=== PATIENT | male | born 1990 | race Caucasian/White ===

== ENCOUNTER 2017-08-28 07:22 | Emergency (ER) | payer SELFPAY ==
[~2017-08-28] VITALS: Ht 185.4 cm; Wt 63.5 kg
[~2017-08-28 07:22] MED LIST: CLIN300C8 PO; HYDR-79 PO; ONDA8TAB12 PO; RANI150T6 PO
[2017-08-28 07:46] VITALS: BP 103/62
--- NOTE | 2017-08-28 07:53 | PHYS DOC ---
Past History Past Medical History: Gallstones, Other Past Surgical History: No Surgical History, Other Smoking: Cigarettes Alcohol Use: Occasionally Drug Use: Marijuana, Methamphetamine Adult General Chief Complaint Chief Complaint: NAUSEA/VOMITING/DIARRHEA HPI HPI 27-year-old male patient states he had 2 energy drink while he was worked last night and vomited 4-5 times and his boss sent him home.. Patient states he had one episode of vomiting at 4:30 this morning without diarrhea and abdominal pain. Patient states he was able to tolerate oral intake. 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 Review of Systems Review of Systems Constitutional: Denies fever or chills [] Eyes: Denies change in visual acuity, redness, or eye pain [] HENT: Denies nasal congestion or sore throat [] Respiratory: Denies cough or shortness of breath [] Cardiovascular: No additional information not addressed in HPI [] GI: Reports nausea, vomiting, denies bloody stools or diarrhea [] : Denies dysuria or hematuria [] Musculoskeletal: Denies back pain or joint pain [] Integument: Denies rash or skin lesions [] Neurologic: Denies headache, focal weakness or sensory changes [] Endocrine: Denies polyuria or polydipsia [] All other systems were reviewed and found to be within normal limits, except as documented in this note. Allergies Allergies Allergies Coded Allergies Type Severity Reaction Last Updated Verified Penicillins Allergy Intermediate 03/18/16 Yes ragweed pollen Allergy Intermediate 02/23/16 No Physical Exam Physical Exam Constitutional: Well developed, well nourished, no acute distress, non-toxic appearance. [] HENT: Normocephalic, atraumatic, oropharynx moist Eyes: PERRLA, EOMI, conjunctiva normal, no discharge. [] Neck: Normal range of motion, no tenderness, supple, no stridor. [] Cardiovascular:Heart rate regular rhythm, no murmur [] Lungs & Thorax: Bilateral breath sounds clear to auscultation [] Abdomen: Bowel sounds normal, soft, no tenderness, no masses, no pulsatile masses. [] Skin: Warm, dry, no erythema, no rash. [] Back: No tenderness, no CVA tenderness. [] Extremities: No tenderness, no cyanosis, no clubbing, ROM intact, no edema. [] Neurologic: Alert and oriented X 3, normal motor function, normal sensory function, no focal deficits noted. [] Psychologic: Affect normal, judgement normal, mood normal. [] EKG EKG [] Radiology/Procedures Radiology/Procedures [] Course & Med Decision Making Course & Med Decision Making discharge: I've spoken with the patient and/or caregivers. I've explained the patient's condition, diagnosis and treatment plan based on information available to me at this time. I've answered the patient's and/or caregivers questions and addressed any concerns. The patient and/or caregivers have a good understanding the patient's diagnosis, condition and treatment plan as can be expected at this point. Vital signs have been stabilized. The patient's condition is stable for discharge from the emergency department. The patient will pursue further outpatient evaluation with her primary care provider or other designated consulting physician as outlined in the discharge instructions. Patient and/or caregivers are agreeable to this plan of care and follow-up instructions have been explained in detail. The patient and/or caregivers have received these instructions in written format and expressed understanding of these discharge instructions. The patient and her caregivers are aware that if any significant change in condition or worsening of symptoms should prompt him to immediately return to this of the closest emergency department. If an emergent department is not readily available I would encourage him to call 911. Randall Disclaimer Dragon Disclaimer This electronic medical record was generated, in whole or in part, using a voice recognition dictation system. Departure Departure: Impression: Primary Impression: Encounter to obtain excuse from work Disposition: HOME, SELF-CARE (At 0752) Condition: STABLE Referrals: PCP,NO (PCP) Patient Instructions: Nausea and Vomiting Additional Instructions: Drink plenty of liquids Follow-up with your primary care physician in 3-5 days Return to ER if not getting better JUAN ALBERTO NICE MD Aug 28, 2017 07:53
== END 2017-08-28 08:05 | disposition home or self-care (01) ==
LOC: ER 07:22
DX: Z02.79 Encounter for issue of other medical certificate (principal); R11.10 Vomiting, unspecified; F17.210 Nicotine dependence, cigarettes, uncomplicated; F12.10 Cannabis abuse, uncomplicated; F15.10 Other stimulant abuse, uncomplicated; Z88.0 Allergy status to penicillin; Z91.048 Other nonmedicinal substance allergy status
CPT/HCPCS: 99281

== ENCOUNTER 2017-09-05 17:25 | Emergency (ER) | payer SELFPAY ==
[~2017-09-05] VITALS: Ht 185.4 cm; Wt 65.8 kg
[2017-09-05] MEDS ORDERED: IV NORMAL SALINE 1,000ML 1,000 ML IV SCH (17:36)
--- NOTE | 2017-09-05 17:42 | PHYS DOC ---
Past History Past Medical History: Seizure Additional Past Medical Histor: pseudoseizure Past Surgical History: Other Smoking: Cigarettes Alcohol Use: None Drug Use: None Adult General Chief Complaint Chief Complaint: NAUSEA/VOMITING/DIARRHEA [facility] 27-year-old male patient complaining of 6 episodes of vomiting and one episode of loose stools since this morning with cramping abdominal pain during episodes of vomiting. Patient states that the same problem several days ago that resolved spontaneously and seen in his emergency room. Patient complaining of generalized weakness and dizziness and decrease of urine output. Patient states he has had intermittent episodes of penile discharge and a history of genital herpes but does not want checking for STD. Patient denies fever and chills, chest pain, shortness of breath. Patient had sick contacts at home. Patient denies using alcohol and drugs. Review of Systems Review of Systems Constitutional: Denies fever or chills [] Eyes: Denies change in visual acuity, redness, or eye pain [] HENT: Denies nasal congestion or sore throat [] Respiratory: Denies cough or shortness of breath [] Cardiovascular: No additional information not addressed in HPI [] GI: Reports abdominal pain, denies bloody stools ] History of nausea and vomiting : Denies dysuria or hematuria [] Musculoskeletal: Denies back pain or joint pain [] Integument: Denies rash or skin lesions [] Neurologic: Denies headache, focal weakness or sensory changes [] Endocrine: Denies polyuria or polydipsia [] All other systems were reviewed and found to be within normal limits, except as documented in this note. Family History Family History Noncontributory Current Medications Current Medications See nursing for home meds Allergies Allergies Allergies Coded Allergies Type Severity Reaction Last Updated Verified Penicillins Allergy Intermediate 09/05/17 Yes ragweed pollen Allergy Intermediate 02/23/16 No Physical Exam Physical Exam Constitutional: Well nourished, mild distress, non-toxic appearance, smell of alcohol on breath. [] HENT: Normocephalic, atraumatic, bilateral external ears normal, oropharynx dry , no oral exudates, nose normal. [] Eyes: PERRLA, EOMI, conjunctiva normal, no discharge. [] Neck: Normal range of motion, no tenderness, supple, no stridor. [] Cardiovascular:Heart rate regular rhythm, no murmur [] Lungs & Thorax: Bilateral breath sounds equal at apex with scattered wheezes auscultation [] Abdomen: Bowel sounds normal, soft, no tenderness, no masses, no pulsatile masses. []Patient declines rectal exam at this time. Skin: Warm, dry, no erythema, no rash. [] Back: No tenderness, no CVA tenderness. [] Extremities: No tenderness, no cyanosis, no clubbing, ROM intact, no edema. [] No psoas or heeltap Neurologic: Alert and oriented X 3, normal motor function, normal sensory function, no focal deficits noted. [] Psychologic: Affect normal, judgement normal, mood normal. [] Current Patient Data Vital Signs Vital Signs Date Time Temp Pulse Resp B/P (MAP) Pulse Ox O2 Delivery O2 Flow Rate FiO2 09/05/17 17:33 98.5 72 16 98 Room Air EKG EKG [] Radiology/Procedures Radiology/Procedures [] Course & Med Decision Making Course & Med Decision Making Pertinent Labs are pending. Patient's care transferred to Dr. Miller at 1800. Patient's labs reviewed. Patient currently feels better. Discussed options discussed possible diagnosis or causes of his nausea and vomiting. Patient does have a history of gallbladder disease and gastritis. Also history of seizure disorder-possible pseudoseizures. Discussed with patient and marijuana use which can also cause a vomiting syndrome, especially if used more than 20 times in a month. Patient encouraged follow-up with primary care. A trial of Zantac be given 150 twice a day. Patient also receive a prescription for Zofran 8 up 4 x day. . Patient recommended to get a hot shower sometimes helps marijuana-induced nausea and vomiting. Consider follow-up with GI for EGD and further evaluation. Must follow-up primary care. 1. Impression nausea and vomiting 2. Marijuana use 3 Hx .gallbladder disease 4 History of gastritis 5. Hx. of seizure disorder possible pseudoseizure order-- 6. History of alcohol use Dragon Disclaimer Dragon Disclaimer This electronic medical record was generated, in whole or in part, using a voice recognition dictation system. Departure Departure: Impression: Primary Impression: Nausea and vomiting Additional Impressions: Marijuana abuse Alcohol abuse Tobacco abuse Tobacco abuse counseling History of pseudoseizure Disposition: HOME, SELF-CARE Condition: IMPROVED Referrals: PCP,DELISA (PCP) Scripts Ranitidine Hcl (ZANTAC) 150 Mg Tablet 150 MG PO BID for 30 Days, #60 TAB Prov: ZAY MILLER MD 09/05/17 Ondansetron (ZOFRAN ODT) 8 Mg Tab.rapdis 8 MG PO QIDPRN Y for NAUSEA/VOMITING, #30 Prov: ZAY MILLER MD 09/05/17 Problem Qualifiers JUAN ALBERTO NICE MD Sep 05, 2017 17:42 ZAY MILLER MD Sep 05, 2017 19:08
[2017-09-05] MEDS ORDERED: 0.9 % SODIUM CHLORIDE 10 ML DISP.SYRIN. IV PRN (17:45)
[2017-09-05] MEDS ORDERED: ONDANSETRON PF 4 MG/2 ML VIAL. IV ONE ×2 (17:45→18:30)
[2017-09-05 18:04] LABS: BASO # 0.1 x10^3/uL (0.0-0.2); BASO % 1 % (0-3); EOS # 0.2 x10^3/uL (0.0-0.7); EOS % 2 % (0-3); HEMATOCRIT 44.1 % (39.0-53.0); HEMOGLOBIN 15.2 g/dL (13.0-17.5); LYMPH # 3.4 x10^3/uL (1.0-4.8); LYMPH % 37 % (24-48); MEAN CORPUSCULAR HEMOGLOBIN 31 pg (25-35); MEAN CORPUSCULAR HGB CONC 34 g/dL (31-37); MEAN CORPUSCULAR VOLUME 91 fL (79-100); MONO # 0.6 x10^3/uL (0.0-1.1); MONO % 6 % (0-9); NEUT # 5.1 x10^3uL (1.8-7.7); NEUT % 55 % (31-73); PLATELET COUNT 291 x10^3/uL (140-400); RED BLOOD COUNT 4.87 x10^6/uL (4.30-5.70); RED CELL DISTRIBUTION WIDTH 13.3 % (11.5-14.5); WHITE BLOOD COUNT 9.3 x10^3/uL (4.0-11.0)
[2017-09-05 18:12] LABS: ALBUMIN 4.1 g/dL (3.4-5.0); ALBUMIN/GLOBULIN RATIO 1.4 (1.0-1.7); CALCIUM 8.9 mg/dL (8.5-10.1); CREATININE 0.9 mg/dL (0.7-1.3); GFR 99.8; POTASSIUM 3.7 mmol/L (3.5-5.1); TOTAL BILIRUBIN 0.5 mg/dL (0.2-1.0); TOTAL PROTEIN 7.1 g/dL (6.4-8.2)
[2017-09-05 18:12] LABS: AMPHETAMINE/METHAMPHETAMINE NEG (NEG); BARBITURATES NEG (NEG); BENZODIAZEPINES NEG (NEG); CANNABINOIDS POS (NEG); COCAINE NEG (NEG); METHADONE NEG (NEG); OPIATES NEG (NEG); PHENCYCLIDINE NEG (NEG)
[2017-09-05 18:16] LABS: BACTERIA,URINE 0 /HPF (0-FEW); BILIRUBIN,URINE NEG (NEG); CLARITY,URINE CLEAR; COLOR,URINE YELLOW; GLUCOSE,URINE NEG (NEG); NITRITE,URINE NEG (NEG); RBC,URINE 0 /HPF (0-2); SQUAMOUS EPITHELIAL CELL,UR OCC /LPF; UROBILINOGEN,URINE 1 mg/dL (0.2 mg/dL); WBC,URINE OCC /HPF (0-4)
[2017-09-05] MEDS ORDERED: ONDA8TAB12 PO (18:36)
[2017-09-05] MEDS ORDERED: RANI150T6 PO (18:36)
[2017-09-05 18:41] VITALS: BP 110/72
[2017-09-05] MEDS ORDERED: FAMOTIDINE 20 MG TABLET PO ONE (18:45)
== END 2017-09-05 18:44 | disposition home or self-care (01) ==
LOC: ER 17:25
DX: R11.2 Nausea with vomiting, unspecified (principal); F12.10 Cannabis abuse, uncomplicated; F10.10 Alcohol abuse, uncomplicated; F17.210 Nicotine dependence, cigarettes, uncomplicated; Z71.6 Tobacco abuse counseling; Z88.8 Allergy status to other drugs, medicaments and biological substances; Z88.0 Allergy status to penicillin
CPT/HCPCS: 36415; 80053; 80307; 81001; 83690; 85025; 96361; 96374; 96376; 99284; J2405; G0479; J7030

== ENCOUNTER 2017-09-30 18:55 | Emergency (ER) | payer SELFPAY ==
[~2017-09-30] VITALS: Ht 185.4 cm; Wt 63.5 kg
[~2017-09-30 18:55] MED LIST changes: +RANI150T21 PO; -RANI150T6 PO
[2017-09-30] MEDS ORDERED: NAPR-683 PO (20:55)
--- NOTE | 2017-09-30 20:55 | PHYS DOC ---
Past History Past Medical History: Seizure Additional Past Medical Histor: pseudoseizure Past Surgical History: Other Smoking: Cigarettes Additional Smoking Information: 3 Cigarette/day. Currently trying to quit Alcohol Use: Occasionally Drug Use: Marijuana Adult General Chief Complaint Chief Complaint: HAND PROBLEM HPI HPI Patient is a 27 year old male who presents with complaint of left thumb pain. Patient states that he accidentally shut his thumb in a car door 2 days ago causing injury. Patient denies any laceration. Patient has been treating his symptoms with ice and ibuprofen. Patient states that the pain is been getting worse over the past 24 hours which is why came to the emergency department. The patient is concerned he may have caused a fracture to the thumb. Patient denies any other injuries. Patient denies any significant past medical history. Patient rates pain as 6 out of 10 on my evaluation and describes the pain as throbbing.[] Review of Systems Review of Systems Constitutional: Denies fever or chills [] Musculoskeletal: Left thumb pain[] Integument: Denies rash or skin lesions [] Neurologic: Denies headache, focal weakness or sensory changes [] All other systems were reviewed and found to be within normal limits, except as documented in this note. Allergies Allergies Allergies Coded Allergies Type Severity Reaction Last Updated Verified Penicillins Allergy Intermediate 09/05/17 Yes ragweed pollen Allergy Intermediate 02/23/16 No Physical Exam Physical Exam Constitutional: Well developed, well nourished, no acute distress, non-toxic appearance. [] Skin: Warm, dry, no erythema, no rash. [] Extremities: No obvious deformity to left thumb, tenderness palpation at the distal PIP joint of left thumb, range of motion intact, no cyanosis, no clubbing. [] Neurologic: Alert and oriented X 3, normal motor function, normal sensory function, no focal deficits noted. [] Current Patient Data Vital Signs Vital Signs Date Time Temp Pulse Resp B/P (MAP) Pulse Ox O2 Delivery O2 Flow Rate FiO2 09/30/17 19:17 98.0 65 16 96 Room Air Lab Results Not performed EKG EKG Not performed[] Radiology/Procedures Radiology/Procedures 3 view left thumb x-ray interpreted by me: No fractures, normal alignment, normal soft tissue[] Course & Med Decision Making Course & Med Decision Making Pertinent Labs and Imaging studies reviewed. (See chart for details) X-rays negative for fracture. Patient's symptoms consistent with contusion. Advised continue use of ibuprofen and Tylenol at home and recommended gentle range of motion as tolerated. Reassured that symptoms should improve over the course the next 3-5 days. Advised follow-up with primary doctor in 1 week if symptoms are not improving and return to emergency department for any worsening or severe symptoms. Patient voiced understanding and in agreement with treatment plan. Dragon Disclaimer Dragon Disclaimer This electronic medical record was generated, in whole or in part, using a voice recognition dictation system. Departure Departure: Impression: Primary Impression: Contusion of left thumb Disposition: HOME, SELF-CARE Condition: STABLE Referrals: PCP,NO (PCP) Patient Instructions: Crush Injury, Fingers or Toes Additional Instructions: Follow-up with your primary doctor in 1 week if symptoms are not improving. Return to the emergency department for any worsening symptoms. Scripts Naproxen (NAPROSYN) 500 Mg Tablet 1 TAB PO BID, #20 TAB 0 Refills Prov: DEB ASNCHEZ MD 09/30/17 Problem Qualifiers Primary Impression: Contusion of left thumb Encounter type: initial encounter Damage to nail status: without damage Qualified Codes: S60.012A - Contusion of left thumb without damage to nail, initial encounter DEB SANCHEZ MD September 30, 2017 20:55
[2017-09-30 21:05] VITALS: BP 106/68
--- NOTE | 2017-09-30 21:25 | RAD ---
EXAM: Left thumb, 3 views. HISTORY: Blunt trauma. COMPARISON: None. FINDINGS: Frontal, lateral and oblique views of the left thumb are obtained. There is no fracture, dislocation or subluxation. IMPRESSION: No acute osseous finding. Electronically signed by: Payton Grimes MD (09/30/2017 9:22 PM) [facility]
== END 2017-09-30 21:08 | disposition home or self-care (01) ==
LOC: ER 18:55
DX: S60.012A Contusion of left thumb without damage to nail, initial encounter (principal); F17.210 Nicotine dependence, cigarettes, uncomplicated; F12.10 Cannabis abuse, uncomplicated; Z88.0 Allergy status to penicillin; Z91.048 Other nonmedicinal substance allergy status; W23.0XXA Caught, crushed, jammed, or pinched between moving objects, initial encounter; Y93.89 Activity, other specified; Y99.8 Other external cause status; Y92.89 Other specified places as the place of occurrence of the external cause
CPT/HCPCS: 73140; 99284

== ENCOUNTER 2018-03-17 13:05 | Inpatient (IN) | payer SELFPAY ==
[~2018-03-17] VITALS: Ht 185.4 cm; Wt 65.9 kg
[~2018-03-17 13:05] MED LIST changes: +NAPR-683 PO
[2018-03-17] MEDS ORDERED: IV NORMAL SALINE 1,000ML 1,000 ML IV ONE (13:15)
[2018-03-17 13:27] LABS: BASO % 1 % (0-3); EOS % 0 % (0-3); HEMATOCRIT 42.6 % (39.0-53.0); HEMOGLOBIN 14.5 g/dL (13.0-17.5); LYMPH # 2.5 x10^3/uL (1.0-4.8); LYMPH % 27 % (24-48); MEAN CORPUSCULAR HEMOGLOBIN 31 pg (25-35); MEAN CORPUSCULAR HGB CONC 34 g/dL (31-37); MEAN CORPUSCULAR VOLUME 90 fL (79-100); MONO # 0.8 x10^3/uL (0.0-1.1); MONO % 9 % (0-9); NEUT # 5.9 x10^3uL (1.8-7.7); NEUT % 64 % (31-73); PLATELET COUNT 290 x10^3/uL (140-400); RED BLOOD COUNT 4.73 x10^6/uL (4.30-5.70); RED CELL DISTRIBUTION WIDTH 13.1 % (11.5-14.5); WHITE BLOOD COUNT 9.3 x10^3/uL (4.0-11.0)
[2018-03-17 13:39] LABS: ACETAMIN < 2.0 mcg/mL (10-30); ALBUMIN 4.1 g/dL (3.4-5.0); CALCIUM 8.7 mg/dL (8.5-10.1); CREATININE 1.1 mg/dL (0.7-1.3); DIRECT BILIRUBIN 0.1 mg/dL (0.0-0.2); GFR 79.1; SALIC 2.4 mg/dL (2.8-20.0); TOTAL BILIRUBIN 0.7 mg/dL (0.2-1.0); TOTAL PROTEIN 7.1 g/dL (6.4-8.2)
[2018-03-17 13:40] LABS: POTASSIUM 2.7 mmol/L (3.5-5.1)
--- NOTE | 2018-03-17 13:48 | PHYS DOC ---
Past History Past Medical History: Seizure Additional Past Medical Histor: pseudoseizure Past Surgical History: Other Smoking: Cigarettes Alcohol Use: Occasionally Drug Use: Marijuana Adult General Chief Complaint Chief Complaint: SUICDAL IDEATION [facility] HPI Patient is a 27 year old male who presents with complaining of suicidal ideation and drug overdose. Patient states he had problem with his fiance and decided to kill himself and took a bunch full of unknown medication belonged to his fiance 30 minutes ago. Patient states he had lots of whiskey before taking the medication. Patient states he has history of suicidal ideation when he was 17-year-old with mental hospitalization. Patient denies nausea and vomiting, pain, homicidal ideation and hallucination. Patient admitted to smoke cigarettes and using marijuana and states he did not use any methamphetamine for the last 2 years. Patient fiance brought the blood of medication that was doxycycline 100 mg and it was missing of 9 capsules from 14 that was prescribed in November 2017. Review of Systems Review of Systems Constitutional: Denies fever or chills [] Eyes: Denies change in visual acuity, redness, or eye pain [] HENT: Denies nasal congestion or sore throat [] Respiratory: Denies cough or shortness of breath [] Cardiovascular: No additional information not addressed in HPI [] GI: Denies abdominal pain, nausea, vomiting, bloody stools or diarrhea [] : Denies dysuria or hematuria [] Musculoskeletal: Denies back pain or joint pain [] Integument: Denies rash or skin lesions [] Neurologic: Denies headache, focal weakness or sensory changes [] Endocrine: Denies polyuria or polydipsia [] All other systems were reviewed and found to be within normal limits, except as documented in this note. Current Medications Current Medications Current Medications Medications (Trade) Dose Ordered Sig/Madai Start Time Stop Time Status Last Admin Dose Admin Sodium Chloride 1,000 ml @ 1,000 mls/hr 1X ONCE 03/17/18 13:15 03/17/18 14:14 UNV Allergies Allergies Allergies Coded Allergies Type Severity Reaction Last Updated Verified Penicillins Allergy Intermediate 09/05/17 Yes ragweed pollen Allergy Intermediate 02/23/16 No Physical Exam Physical Exam Constitutional: Well nourished, no acute distress, non-toxic appearance. [] HENT: Normocephalic, atraumatic, good gag reflex, oropharynx moist, no oral exudates, nose normal. [] Eyes: PERRLA, EOMI, conjunctiva normal, no discharge. [] Neck: Normal range of motion, no tenderness, supple, no stridor. [] Cardiovascular:Heart rate regular rhythm, no murmur [] Lungs & Thorax: Bilateral breath sounds clear to auscultation [] Abdomen: Bowel sounds normal, soft, no tenderness, no masses, no pulsatile masses. [] Skin: Warm, dry, no erythema, no rash. [] Back: No tenderness, no CVA tenderness. [] Extremities: No tenderness, no cyanosis, no clubbing, ROM intact, no edema. [] Neurologic: Alert and oriented X 3, normal motor function, normal sensory function, no focal deficits noted. [] Psychologic: Affect is depressed, judgement normal, suicidal ideation. EKG EKG EKG interpreted by me. EKG at 1316 showed sinus bradycardia at rate of 55, incomplete right bundle branch block, poor R-wave progress in anteroseptal leads , no acute ST and T-wave abnormalities.[] Radiology/Procedures Radiology/Procedures [] Course & Med Decision Making Course & Med Decision Making Pertinent Labs reviewed. (See chart for details) Evaluation of patient in ER showed 27-year-old male patient with complaining of overdose on unknown medication. Patient fiance brought whether of doxycycline that had 9 missing pills. Poison control center was contacted and agreed that patient does not need any special treatment. Patient later on mentioned to [employer]HW[employer]PERVISOR that he took some medication started with B and [employer] mentionable "Buspar" and he said maybe medication was Buspar. Patient had stable vital signs while he was in ER alert and oriented. Potassium was 2.7 and IV potassium was started. Dr. Scott accepted admission for observation of drug overdose and hypokalemia. Dragon Disclaimer Dragon Disclaimer This electronic medical record was generated, in whole or in part, using a voice recognition dictation system. Departure Departure: Impression: Primary Impression: Intentional drug overdose Additional Impressions: Hypokalemia Alcohol abuse Depressed Methamphetamine abuse Disposition: 09 ADMITTED INPATIENT (at 1358) Admitting Physician: Amelia Scott (accepted admission at 1356) Condition: GUARDED Referrals: PCP,DELISA (PCP) Critical Care Time Critical care time was 60 minutes exclusive of procedures. Problem Qualifiers JUAN ALBERTO NICE MD Mar 17, 2018 13:48
[2018-03-17] MEDS ORDERED: IV NORMAL SALINE 1,000ML 1,000 ML IV SCH (13:59)
[2018-03-17] MEDS ORDERED: POTASSIUM CHLORIDE 20MEQ 100 ML IV SCH (14:30)
--- NOTE | 2018-03-17 15:05 | EKG ---
[address] [address] Test Date: 2018-03-17 Test Time: 13:16:14 Pat Name: ANGEL DESOUZA Department: Room: Gender: M Department Editor: : 1990 Requested By: JUAN ALBERTO NICE Order Number: [id number] Reading MD: Measurements Intervals Young Harris Rate: 55 P: 73 FL: 138 QRS: 87 QRSD: 104 T: 91 QT: 492 QTc: 473 Interpretive Statements SINUS RHYTHM INCOMPLETE RIGHT BUNDLE BRANCH BLOCK T ABNORMALITY IN ANTEROSEPTAL LEADS ABNORMAL ECG RI6.01 Unconfirmed report No previous ECG available for comparison
[2018-03-17 15:24] LABS: AMPHETAMINE/METHAMPHETAMINE POS (NEG); BARBITURATES NEG (NEG); BENZODIAZEPINES NEG (NEG); CANNABINOIDS POS (NEG); COCAINE NEG (NEG); METHADONE NEG (NEG); OPIATES NEG (NEG); PHENCYCLIDINE NEG (NEG)
[2018-03-17 15:36] LABS: BILIRUBIN,URINE NEG (NEG); CLARITY,URINE CLEAR; COLOR,URINE YELLOW; GLUCOSE,URINE NEG (NEG)
[2018-03-17 15:37] LABS: BACTERIA,URINE 0 /HPF (0-FEW); NITRITE,URINE NEG (NEG); RBC,URINE 0 /HPF (0-2); UROBILINOGEN,URINE 0.2 mg/dL (0.2 mg/dL); WBC,URINE 0 /HPF (0-4)
[2018-03-17 16:09] VITALS: BP 121/80
[2018-03-17 17:19] LABS: CALCIUM 8.1 mg/dL (8.5-10.1); CREATININE 0.9 mg/dL (0.7-1.3); GFR 99.8; POTASSIUM 3.2 mmol/L (3.5-5.1)
[2018-03-17 19:01] VITALS: BP 118/74
[2018-03-17 20:00] VITALS: BP 131/75
[2018-03-17 21:00] VITALS: BP 122/76
[2018-03-17 22:00] VITALS: BP 119/75
--- NOTE | 2018-03-18 14:30 | SSS ---
ADMIT DATE: HISTORY OF PRESENT ILLNESS: The patient is a 27-year-old male patient who presented to the Emergency Room complaining of suicidal ideation and drug overdose. He states he has a problem with his fiancee and decided to kill himself and took unknown medication that belonged to his fiancee 30 minutes prior to his arrival. He stated he drank lot of whiskey before taking his medication and also had a history of suicidal ideation when he was 17 years old with mental hospitalization. By the time he arrived to the hospital, he denied any nausea or vomiting. Denied any homicidal ideation or hallucination. He admitted to smoke cigarettes and using marijuana and stated that he did not use any methamphetamine for the last 2 years, although the urine tox screen was positive for methamphetamine. His fiancee brought the bottle medication, it was doxycycline 100 mg, it was missing 9 capsules out of 14, it was prescribed in 11/2017. The patient stated that the color of the tablets were white, while the doxycycline were green and he thinks it is BuSpar. The patient was extensively evaluated in the Emergency Room and he was found to be hemodynamically stable. His EKG showed that he was in sinus bradycardia with incomplete right bundle-branch block, poor R-wave progression in the anteroseptal leads with no acute ST-T changes. His lab work showed that his CBC was within acceptable range. His potassium was low at 2.7 and the patient was admitted to the ICU for one-on-one observation and to replenish started on IV fluid with potassium supplement. He was evaluated by the [facility] and apparently arrangement has been made for him to be admitted to an inpatient psych unit at the [facility] in [place]. PHYSICAL EXAMINATION: GENERAL: When he was discharged, he looked well and was clearly in no apparent distress. He was pale, cachectic, but no jaundice, cyanosis. No thyromegaly. No jugular venous distension. No limb edema. VITAL SIGNS: His heart rate was 57, blood pressure 119/75, temperature was 98.5, respiratory rate was 18 and oxygen saturation was 98% on room air. HEAD, EYES, EAR, NOSE AND THROAT: Showed normocephalic, atraumatic. NECK: Supple. HEART: Showed normal first and second heart sounds with no gallop, rub or murmur. CHEST: Clear to auscultation. No crepitation or rhonchi. ABDOMEN: Distended, soft, nontender. NEUROLOGIC: He was awake, alert, responding appropriately. All cranial nerves are intact. EXTREMITIES: He moves extremities without difficulty, ambulates without assistance or assistive devices. LABORATORY DATA: His lab work showed his white cell count to be 9300, hemoglobin 14.5, hematocrit 42, MCV 90 and platelet count 190,000. His chemistry showed a serum sodium 142, potassium 3.2, chloride 107, bicarbonate 25, anion gap of 10, BUN 10, creatinine 0.9, estimated GFR was 99 mL per minute. His glucose was 83 and calcium was 8.1. Urinalysis was essentially unremarkable and urine toxicology screen was positive for cannabinoids. His blood alcohol level was 60 mg/dL. His toxic screen was also positive for amphetamine and methamphetamine. ASSESSMENT AND PLAN: Although the patient vehemently denied abusing methamphetamine stated that his last time use of methamphetamine was about 2 years ago. He was discharged to inpatient psychiatric Psych Unit at [facility] to continue to be evaluated there by the psychiatric team. FINAL DISCHARGE DIAGNOSES: Suicidal attempt, hypokalemia, he has also had alcohol abuse, cannabinoid abuse, methamphetamine ____ abuse. BARON LEHMAN MD DR: SRIRAM/zion JOB#: [id number] / [id number]
== END 2018-03-17 23:00 | DRG 918 ==
LOC: ER 13:05 → ICU 13:58
PROVIDERS: ADMIT Internal Medicine; ATTEND Internal Medicine
DX: T36.4X2A Poisoning by tetracyclines, intentional self-harm, initial encounter (principal); E87.6 Hypokalemia; F10.10 Alcohol abuse, uncomplicated; F12.90 Cannabis use, unspecified, uncomplicated; F15.10 Other stimulant abuse, uncomplicated; F17.210 Nicotine dependence, cigarettes, uncomplicated; I45.10 Unspecified right bundle-branch block; F44.5 Conversion disorder with seizures or convulsions; F32.9 Major depressive disorder, single episode, unspecified; Z88.0 Allergy status to penicillin; Z91.018 Allergy to other foods; Z79.899 Other long term (current) drug therapy; Z91.5 Personal history of self-harm; Y92.89 Other specified places as the place of occurrence of the external cause
CPT/HCPCS: 36415; 80048; 80076; 80307; 81001; 85025; 87641; 93005; G0480; G6039; J3480; 82003; G0479; J7030

== ENCOUNTER 2020-01-04 17:14 | Emergency (ER) | payer MEDICAID ==
[~2020-01-04] VITALS: Ht 180.3 cm; Wt 58.9 kg
[~2020-01-04 17:14] MED LIST changes: +HYDR-1179 PO; -HYDR-79 PO; +RANI-376 PO; -RANI150T21 PO
[2020-01-04 17:25] VITALS: BP 116/66
[2020-01-04] MEDS ORDERED: DIPH,PERTUSS(ACELL),TET VAC/PF 0.5 ML SYRINGE. VAX IM ONE (17:30)
--- NOTE | 2020-01-04 17:43 | PHYS DOC ---
Past History Past Medical History: No Pertinent History Additional Past Medical Histor: pseudoseizure Past Surgical History: No Surgical History Smoking: Cigarettes Alcohol Use: Occasionally Drug Use: Marijuana General Adult EDM: Chief Complaint: LACERATION/AVULSION HPI: HPI: Patient is a 29-year-old male who presented to ER today for evaluation of left finger laceration. Patient said he used a electric hedge to trim some bushes at home today accidentally cut his left index finger. Patient can flex and extend his left index finger without any problem, no tendon injury. Patient is not up-to-date on his tetanus vaccination status. Patient immediately cleaned his finger with saline at home Review of Systems: Review of Systems: Constitutional: Denies fever or chills Eyes: Denies change in visual acuity HENT: Denies nasal congestion or sore throat Respiratory: Denies cough or shortness of breath Cardiovascular: Denies chest pain or edema GI: Denies abdominal pain, nausea, vomiting, bloody stools or diarrhea : Denies dysuria Musculoskeletal: Denies back pain or joint pain Integument: positive for skin laceration. Neurologic: Denies headache, focal weakness or sensory changes Endocrine: Denies polyuria or polydipsia Lymphatic: Denies swollen glands Psychiatric: Denies depression or anxiety Heart Score: Risk Factors: Risk Factors: DM, Current or recent (<one month) smoker, HTN, HLP, family history of CAD, obesity. Risk Scores: Score 0 - 3: 2.5% MACE over next 6 weeks - Discharge Home Score 4 - 6: 20.3% MACE over next 6 weeks - Admit for Clinical Observation Score 7 - 10: 72.7% MACE over next 6 weeks - Early Invasive Strategies Current Medications: Current Meds: Current Medications Medications (Trade) Dose Ordered Sig/Madai Start Time Stop Time Status Last Admin Dose Admin Diphtheria/ Pertussis/Tetanus Vacc (ADACEL TDap SYRINGE) 0.5 ml ONCE ONCE 01/04/20 17:30 01/04/20 17:41 DC 01/04/20 17:33 0.5 ML Allergies: Allergies: Allergies Coded Allergies Type Severity Reaction Last Updated Verified Penicillins Allergy Intermediate 09/05/17 Yes ragweed pollen Allergy Intermediate 02/23/16 No Physical Exam: PE: Constitutional: Well developed, well nourished, no acute distress, non-toxic appearance. [] HENT: Normocephalic, atraumatic, bilateral external ears normal, oropharynx moist, no oral exudates, nose normal. [] Eyes: PERRLA, EOMI, conjunctiva normal, no discharge. [] Neck: Normal range of motion, no tenderness, supple, no stridor. [] Cardiovascular:Heart rate regular rhythm, no murmur [] Lungs & Thorax: Bilateral breath sounds clear to auscultation [] Abdomen: Bowel sounds normal, soft, no tenderness, no masses, no pulsatile masses. [] Skin: Warm, dry, no erythema, no rash. [] Back: No tenderness, no CVA tenderness. [] Extremities: No tenderness, no cyanosis, no clubbing, ROM intact, no edema. 2.5 cm laceration on left index finger at the proximal interphalanx, no tenon laceration, patient can flex and extend DIP joint without any problem, no active bleeding. Neurologic: Alert and oriented X 3, normal motor function, normal sensory function, no focal deficits noted. [] Psychologic: Affect normal, judgement normal, mood normal. [] Current Patient Data: Vital Signs: Vital Signs Date Time Temp Pulse Resp B/P (MAP) Pulse Ox O2 Delivery O2 Flow Rate FiO2 01/04/20 17:25 98.3 73 20 116/66 (83) 97 Room Air EKG: EKG: [] Radiology/Procedures: Radiology/Procedures: Indication: left index finger laceration Procedure: The patient was placed in the appropriate position and anesthesia was achieved by digital block, web space method with 6 ml of .5% marcain. The area was then cleaned with betadine and saline. The laceration was closed with 4 sutures, 3-0-nylon, simple interruptous method. The wound area was then dressed with nonstick gauze. Total repaired wound length: 2.5 cm Other Items: no tendon injury noted. The patient tolerated the procedure well. Complications: none Course & Med Decision Making: Course & Med Decision Making Pertinent Labs and Imaging studies reviewed. (See chart for details) [] Dragon Disclaimer: Dragon Disclaimer: This electronic medical record was generated, in whole or in part, using a voice recognition dictation system. Departure Departure: Impression: Primary Impression: Finger laceration Disposition: 01 HOME/RESIDENCE PRIOR TO ADM Condition: STABLE Referrals: PCP,NO (PCP) follow up with your doctor in 7-10 days for sutures removal Patient Instructions: Diphtheria Toxoid; Tetanus Toxoid Adsorbed, DT, Td, Laceration Care, Adult Additional Instructions: Thank you for visiting our Emergency Department. We appreciate you trusting us with your care. If any additional problems come up don't hesitate to return to visit us. Please follow up with your primary care provider so they can plan additional care if needed and know about the problem that you had. If symptoms worsen come back to the Emergency Department. Any concerning symptoms that start such as chest pain, shortness of air, weakness or numbness on one side of the body, running high fevers or any other concerning symptoms return to the ER. Scripts No Active Prescriptions or Reported Meds Justification of Admission: Justification of Admission: Justification of Admission Dx: N/A SHAWNA MCGILL DO Jan 04, 2020 17:43
== END 2020-01-04 17:50 | disposition home or self-care (01) ==
LOC: ER 17:14
DX: S61.211A Laceration without foreign body of left index finger without damage to nail, initial encounter (principal); F17.210 Nicotine dependence, cigarettes, uncomplicated; Z88.0 Allergy status to penicillin; Z88.8 Allergy status to other drugs, medicaments and biological substances; W29.3XXA Contact with powered garden and outdoor hand tools and machinery, initial encounter; Y93.H2 Activity, gardening and landscaping; Y92.89 Other specified places as the place of occurrence of the external cause; Y99.8 Other external cause status
CPT/HCPCS: 12001; 90471; 90715; 99283

== ENCOUNTER 2020-01-13 14:39 | Emergency (ER) | payer SELFPAY ==
[~2020-01-13] VITALS: Ht 180.3 cm; Wt 58.9 kg
--- NOTE | 2020-01-13 14:51 | PHYS DOC ---
Past History Past Medical History: No Pertinent History Additional Past Medical Histor: pseudoseizure Past Surgical History: No Surgical History Smoking: Cigarettes Alcohol Use: Occasionally Drug Use: Marijuana General Adult EDM: Chief Complaint: SUTURE/STAPLE REMOVAL HPI: HPI: Male presents for suture removal of 4 sutures of his left index finger. They are placed 9 days ago. He has had no complications. Review of Systems: Review of Systems: Constitutional: Denies fever or chills Eyes: Denies change in visual acuity HENT: Denies nasal congestion or sore throat Respiratory: Denies cough or shortness of breath Cardiovascular: Denies chest pain or edema GI: Denies abdominal pain, nausea, vomiting, bloody stools or diarrhea : Denies dysuria Musculoskeletal: Denies back pain or joint pain Integument: Suture removal Neurologic: Denies headache, focal weakness or sensory changes Endocrine: Denies polyuria or polydipsia Lymphatic: Denies swollen glands Psychiatric: Denies depression or anxiety Heart Score: Risk Factors: Risk Factors: DM, Current or recent (<one month) smoker, HTN, HLP, family history of CAD, obesity. Risk Scores: Score 0 - 3: 2.5% MACE over next 6 weeks - Discharge Home Score 4 - 6: 20.3% MACE over next 6 weeks - Admit for Clinical Observation Score 7 - 10: 72.7% MACE over next 6 weeks - Early Invasive Strategies Allergies: Allergies: Allergies Coded Allergies Type Severity Reaction Last Updated Verified Penicillins Allergy Intermediate 09/05/17 Yes ragweed pollen Allergy Intermediate 02/23/16 No Physical Exam: PE: Constitutional: Well developed, well nourished, no acute distress, non-toxic appearance. [] HENT: Normocephalic, atraumatic, bilateral external ears normal, oropharynx moist, no oral exudates, nose normal. [] Eyes: PERRLA, EOMI, conjunctiva normal, no discharge. [] Neck: Normal range of motion, no tenderness, supple, no stridor. [] Cardiovascular:Heart rate regular rhythm, no murmur [] Lungs & Thorax: Bilateral breath sounds clear to auscultation [] Abdomen: Bowel sounds normal, soft, no tenderness, no masses, no pulsatile masses. [] Skin: 4 sutures in the left index finger, healing appropriately.. [] Back: No tenderness, no CVA tenderness. [] Extremities: No tenderness, no cyanosis, no clubbing, ROM intact, no edema. [] Neurologic: Alert and oriented X 3, normal motor function, normal sensory f unction, no focal deficits noted. [] Psychologic: Affect normal, judgement normal, mood normal. [] EKG: EKG: [] Radiology/Procedures: Radiology/Procedures: [] Course & Med Decision Making: Course & Med Decision Making Pertinent Labs and Imaging studies reviewed. (See chart for details) I removed 4 sutures without complication. The patient is stable for discharge at this time. [] Dragon Disclaimer: Dragon Disclaimer: This electronic medical record was generated, in whole or in part, using a voice recognition dictation system. Departure Departure: Impression: Primary Impression: Visit for suture removal Disposition: 01 HOME/RESIDENCE PRIOR TO ADM Condition: STABLE Referrals: PCP,NO (PCP) Patient Instructions: Suture Removal-Brief Scripts No Active Prescriptions or Reported Meds Justification of Admission: Justification of Admission: Justification of Admission Dx: N/A MICAH SHAH DO Jan 13, 2020 14:51
[2020-01-13 15:00] VITALS: BP 92/52
== END 2020-01-13 15:00 | disposition home or self-care (01) ==
LOC: ER 14:39
DX: S61.211D Laceration without foreign body of left index finger without damage to nail, subsequent encounter (principal); F17.210 Nicotine dependence, cigarettes, uncomplicated; Z88.0 Allergy status to penicillin; Z88.8 Allergy status to other drugs, medicaments and biological substances; X58.XXXD Exposure to other specified factors, subsequent encounter
CPT/HCPCS: 99281